=== PATIENT | male | born 1950 | race Caucasian/White ===

== ENCOUNTER → 2016-08-03 16:40 | Outpatient (CLI) | payer MEDICARE ==
[2014-06-05 07:15] VITALS: BMI 32.9
[~2016-08-03 16:40] MED LIST: ASPIRIN 81 MG E81 MG PO; FLOMAX0.4 MG PO; HCTZ25 MG PO; MICRO-K10 MEQ PO; PLAVIX75 MG PO; VITAMIN C1000 MG PO
[2016-08-03 18:45] LABS: CHOL - HDL RATIO 5.7 ratio (2.3-4.9)
== END | disposition home or self-care (01) ==
LOC: D.LABREF 16:40
PROVIDERS: Internal Medicine Cardiovascular Disease
DX: E78.5 Hyperlipidemia, unspecified (principal)

== ENCOUNTER 2017-10-26 06:46 | Outpatient (CLI) | payer MEDICARE ==
[~2017-10-26] VITALS: Ht 170.2 cm; Wt 86.4 kg
--- NOTE | ~2017-10-26 | HEMODYNAMI ---
PATIENT:CAROLINA FERNÁNDEZ MEDICAL RECORD: [id number] : 46 LOCATION:D.CAT ADMISSION DATE: 10/26/17 Generatedon:10/26/201710:48 Patient name: CAROLINA FERNÁNDEZ Patient #: [id number] SSN: : 1950 Date of study: 10/26/2017 Page: Of Hemodynamic Procedure Report Patient Data Patient Demographics Procedure consent was obtained First Name: CAROLINA Gender: Male Last Name: PRADEEP : 1950 [facility] Initial: JOSELYN Age: 66 year(s) Patient #: [id number] Race: Unknown Additional ID: [id number] Contact details Address: [address] [place] [address] [facility] [place] [facility] Zip code: [address] Past Medical History Allergies: No known allergies Admission Admission Data Admission Date: 10/26/2017 Admission Time: 6:46 Procedure Procedure Types Cath Procedure Diagnostic Procedure C LH w/Coronaries Sedation Charges Moderate Sedation up to 15 minutes Procedure Description Procedure Date Procedure Date: 10/26/2017 Procedure Start Time: 10:32 Procedure End Time: 10:43 Procedure Staff Name Function Genet Velasco RT Monitor Frances Johnson RN Nurse Toi Harris MD Performing Physician Maria Ines Zhong RT Scrub Procedure Data Cath Procedure Fluoroscopy Diagnostic fluoroscopy Total fluoroscopy Time: 2.2 time: 2.2 min min Diagnostic fluoroscopy Total fluoroscopy dose: 478 dose: 478 mGy mGy Contrast Material Contrast Material Type Amount (ml) Isovue 300 41 Entry Location Entry Primary Successful Side Size Upsize Upsize Entry Closure Hameed ccessful Closure Location (Fr) 1 (Fr) 2 (Fr) Remarks Device Remarks Radial Right 6 Fr Mechanical artery Short Compression Estimated blood loss: 5 ml Diagnostic catheters Device Type Used For End Catheter Placement DIAGNOSTIC [place] 110cm 5 Multi-vessel Fr catheter ([id number]) Angiography Procedure Complications No complications Procedure Medications Medication Administration Route Dosage Oxygen NC 2 l/min Lidocaine 2% added to field 20 Heparin Flush Bag added to field 2 bags (1000units/500ml NS) 0.9% NaCl I.V. 100 ml/hr Versed I.V. 2 mg Fentanyl I.V. 100 mcg Radial Cocktail I.A. 1 syringe (Verapomil 2mg/Nitro 400mcg/Heparin 1500units) Versed I.V. 1 mg Fentanyl I.V. 50 mcg Versed I.V. 1 mg Fentanyl I.V. 50 mcg Brilinta P.O. 90 mg Hemodynamics Rest Heart Rate: 66 (bpm) Pressure Samples Time Site Value (mmHg) Purpose Heart Use Rate(bpm) 10:35 LV 115/19,31 Snapshot 82 10:35 LV 100/15,24 Pullback 75 10:35 AO 95/52(70) Pullback 75 Gradients Valve Time Site 1 Site 2 Mean SEP/DFP Peak To Heart Use (mmHg) (sec/min) Peak Rate (mmHg) (bpm) Aortic 10:35 LV AO 6 9 5 75 100/15,24 95/52(70) Calculations Valve P-P Mean Valve Index Valve Source Name Gradient Area Flow (cm2) Aortic 5 6 5 6 Snapshots Pre Cath Intra NCS Post Cath Vital Signs Time Heart Resp SPO2 etCO2 NIBP Rhythm Pain Sedation Rate (ipm) (%) (mmHg) (mmHg) Status Level (bpm) 10:25:49 61 18 98 0 108/70(83) NSR 0 (11) 10(A) , No pain 10:29:57 65 14 93 0 112/65(92) NSR 0 (11) 10(A) , No pain 10:34:09 64 19 97 37.4 103/58(77) NSR 0 (11) 9(A) , No pain 10:38:19 73 18 95 39 86/52(64) NSR 0 (11) 9(A) , No pain 10:42:21 70 18 96 39.6 83/55(70) NSR 0 (11) 10(A) , No pain Medications Time Medication Route Dose Verified Delivered Reason Notes Effectiveness by by 10:27:39 Brilinta P.O. 90 mg Toi Buffie for Steven Johnson RN antiplatelet therapy 10:28:12 Oxygen NC 2 l/min Toi Buffie used for Steven Johnson RN procedure 10:28:18 Lidocaine 2% added 20ml Toi Toi for local to vial Steven Harris MD anesthetic field 10:28:25 Heparin Flush added 2 bags Toi Toi used for Bag to Steven Harris MD procedure (1000units/500ml field NS) 10:28:33 0.9% NaCl I.V. 100 Toi Buffie Per ml/hr Steven Johnson RN physician 10:28:43 Versed I.V. 2 mg Toi Buffie for sedation Steven Johnson RN 10:28:51 Fentanyl I.V. 100 mcg Toi Buffie used for Steven Johnson RN procedure 10:33:58 Radial Cocktail I.A. 1 Toi Toi for (Verapomil syringe Steven Harris MD vasodilation 2mg/Nitro 400mcg/Hepari 10:34:04 Versed I.V. 1 mg Toi Toi for sedation Steven Harris MD 10:34:08 Fentanyl I.V. 50 mcg Toi Toi used for Steven Harris MD procedure 10:38:24 Versed I.V. 1 mg Toi Buffie for sedation Steven Johnson RN 10:38:28 Fentanyl I.V. 50 mcg Toi Buffie used for Steven Johnson RN procedure Procedure Log Time Note 10:11:05 Diagnostic Cath Status : Elective 10:11:20 Time tracking: Regular hours (M-F 7:00 - 5:00) 10:11:20 Frances Johnson RN sent for patient. Start room use. 10:11:25 Plan of Care:Hemodynamics will remain stable., Cardiac rhythm will remain stable., Comfort level will be maintained., Respiratory function will remain adequate., Patient/ family verbilizes understanding of procedure., Procedure tolerated without complication., Recovers from procedure without complications.. 10:13:29 Patient received from Pre/Post Procedure Room to CCL 2 Alert and oriented. Tansferred to table in Supine position. 10:13:31 Correct patient and procedure confirmed by team. 10:13:31 Warm blankets applied, and kiran hugger turned on for patient comfort. 10:13:32 Signed procedure consent form obtained from patient. 10:13:43 H&P Date Dictated: 10/03/2017 Within 30 days and on chart., H&P Addendum completed by physician on day of procedure. (MUST COMPLETE FOR ALL OUTPATIENTS). 10:24:47 Vital chart was started 10:24:47 ECG and BP/O2 sat monitors applied to patient. 10:24:48 Baseline sample Acquired. 10:24:52 Rhythm: sinus rhythm 10:24:53 Full Disclosure recording started 10::56 Pre-op teaching completed and patient verbalized understanding. 10:24:56 Pre-procedure instructions explained to patient. 10:24:58 Family in waiting room. 10:24:59 Patient NPO since Midnight. 10:25:01 Is the patient allergic to Iodine/contrast media? No. 10:25:05 Was the patient premedicated? No 10:25:07 Is patient on blood thinner?Yes 10:25:10 ACC The patient was administered the following blood thiners within the last 24 hours: ACCBrilinta 10:25:12 Patient diabetic? No. 10:25:14 Previous problem with sedation/anesthesia? No ? 10:25:16 Snore? Yes 10:25:17 Sleep apnea? No 10:25:18 Deviated septum? No 10:25:20 Opens mouth fully? Yes 10:25:22 Sticks out tongue? Yes 10:25:25 Airway obstruction? No ? 10:25:28 Dentures? No ? 10:25:32 Pre procedure: right dorsailis pedis pulse 2+ Normal; easily identifiable; not easily obliterated 10:25:35 Pre procedure: left dorsailis pedis pulse 2+ Normal; easily identifiable; not easily obliterated 10:25:37 Patient pain scale 0/10 ?. 10:25:44 IV patent on arrival in left forearm with 0.9% NaCl at KVO. 10:25:48 Lab results completed and on chart. 10:25:55 Alarms reviewed by R. N. 10:25:55 Right Radial & Right Groin area was prepped with chlora-prep and draped in sterile fashion 10:25:56 Sharps counted by scrub and verified by R.N. 10::57 --------ALL STOP TIME OUT------ 10:25:57 Physician arrived 10:25:58 Final Timeout: patient, procedure, and site verified with staff and physician. All members of the team are in agreement. 10:25:59 Right Radial & Right Groin site verified by team. 10:26:02 Physical assessment completed. ASA score P 2 - A patient with mild systemic disease as per Toi Harris MD. 10:26:05 Sedation plan: IV Moderate Sedation Medication:Versed, Fentanyl 10:27:39 Brilinta 90 mg P.O. was administered by Farnces Johnson RN; for antiplatelet therapy; 10:28:12 Oxygen 2 l/min NC was administered by Frances Johnson RN; used for procedure; 10:28:18 Lidocaine 2% 20ml vial added to field was administered by Toi Harris MD; for local anesthetic; 10:28:25 Heparin Flush Bag (1000units/500ml NS) 2 bags added to field was administered by Toi Harris MD; used for procedure; 10:28:33 0.9% NaCl 100 ml/hr I.V. was administered by Frances Johnson RN; Per physician; 10:28:43 Versed 2 mg I.V. was administered by Frances Johnson RN; for sedation; 10:28:51 Fentanyl 100 mcg I.V. was administered by Frances Johnson RN; used for procedure; 10:30:28 Use device set Radial Dx or PCI 10:30:29 ACIST Syringe (50348) opened to sterile field. 10:30:30 Bag Decanter (2002) opened to sterile field. 10:30:30 Medline Cath Pack ([id number]) opened to sterile field. 10:30:31 ACIST Hand Control (33432) opened to sterile field. 10:30:31 DIAGNOSTIC WIRE .035 260cm J wire (755400) opened to sterile field. 10:30:32 Tegaderm 4 x 4 (1626W) opened to sterile field. 10:30:32 ACIST Manifold (14217) opened to sterile field. 10:30:33 MBrace Wrist Support ([id number]) opened to sterile field. 10:30:34 SHEATH 6Fr Prelude Radial ([id number]) opened to sterile field. 10:30:43 Procedure started. 10:32:17 Local anesthetic to right radial artery with Lidocaine 2% by Toi Harris MD.INITIAL ACCESS ONLY 10:32:37 A 6 Fr Short sheath was inserted into the Right Radial artery 10:33:58 Radial Cocktail (Verapomil 2mg/Nitro 400mcg/Heparin 1500units) 1 syringe I.A. was administered by Toi Harris MD; for vasodilation; 10:34:04 Versed 1 mg I.V. was administered by Toi Harris MD; for sedation; 10:34:08 Fentanyl 50 mcg I.V. was administered by Toi Harris MD; used for procedure; 10:34:23 A DIAGNOSTIC [place] 110cm 5 Fr catheter ([id number]) was advanced over the wire and used for Multi-vessel Angiography. 10:35:06 LV hemodynamics recorded. 10:35:07 LV gram done using KELLER 10:35:10 Injector settings: Ml/sec: 5, Volume: 15, 10:35:26 EF : 60 % 10:37:32 LCA angiography performed. 10:37:35 Injector settings: Ml/sec: 3, Volume: 6, 10:38:24 Versed 1 mg I.V. was administered by Frances Johnson RN; for sedation; 10:38:26 RCA angiography performed. 10:38:28 Fentanyl 50 mcg I.V. was administered by Frances Johnson RN; used for procedure; :38:28 Injector settings: Ml/sec: 3, Volume: 6, 10:39:45 Catheter removed. 10:41:30 TR BAND Standard ([id number]) opened to sterile field. 10:41:41 Sheath removed intact; hemostasis achieved with Mechanical Compression to the Right Radial artery. 10:41:42 Procedure ended.(Physican Out) 10:42:01 Fluoroscopy time 02.20 minutes. 10:42:05 Fluoroscopy dose: 478 mGy 10:42:05 Flurop Dose total: 478 10:42:08 Contrast amount:Isovue 300 41ml. 10:42:10 Sharps counted by scrub and verified by R.N. 10:42:13 TR band inflated with 11cc of air. 10:42:14 Insertion/operative site no bleeding no hematoma. 10:42:18 Post right radial artery:stable 10:42:19 Post Procedure Pulses reassessed and unchanged 10:42:22 Post procedure rhythm: unchanged. 10:42:25 Estimated blood loss: 5 ml 10:42:26 Post procedure instruction explained to patient.Patient verbalizes understanding. 10:42:27 Patient needs reinforcement of post procedure teaching. 10:42:44 Procedure type changed to Cath procedure, Diagnostic procedure, LHC, LHC w/Coronaries, Sedation Charges, Moderate Sedation up to 15 minutes 10:42:52 Procedure and supply charges have been captured, reviewed, submitted and are correct. 10:42:59 Procedure Complication : No complications 10:43:01 Vital chart was stopped 10:43:02 See physician's report for complete and final results. 10:43:04 Report given to Pre/Post Procedure Room. 10:43:07 Patient transfered to Pre/Post Procedure Room with Stretcher. 10:43:16 Full Disclosure recording stopped 10:43:16 Procedure ended. 10:43:27 End room use (Document Last) Device Usage Item Name Manufacture Quantity Catalog Number Hospital Part Current M inimal Lot# / Charge Number Stock Stock Serial# Code ACIST Syringe Acist 1 04484 128043 216329 576033 2 0 (45891) [employer] Medline Cath Cardinal 1 [id number] 003973 39050 659815 5 [employer] ([id number]) Bag Decanter Microtek 1 2001S 522458 37353 777418 5 (2001S) Medical Inc. DIAGNOSTIC WIRE St [place]hav[place] 1 [id number] 045123 784013 220573 3 0 .035 260cm J wire (613588) ACIST Hand Acist 1 24245 734213 946339 026470 5 Control (04163) [employer] Inc ACIST Manifold Acist 1 73306 540039 248867 179578 5 (87243) [employer] Inc Tegaderm 4 x 4 3M 1 1626W 510594 489976 872431 5 (1626W) MBrace Wrist Advanced 1 140-0250-00 133960 07944 403854 5 Support Vascular ([id number]) Dynamics SHEATH 6Fr Merit 1 [id number] 173562 618153 353902 5 Prelude Radial Medical ([id number]) DIAGNOSTIC Terumo 1 40-5143 612924 789502 198295 5 [place] 110cm 5 Fr catheter (318617) TR BAND Terumo 1 [id number] 373816 105896 925142 4 0 Standard ([id number]) Signature Audit Puposky Stage Time Signature Unsigned Intra-Procedure 10/26/2017 Genet Velasco 10:48:05 AM RT(R) Signatures Monitor : Genet Velasco RT Signature : Date : Time : [address] [place] [address]
[2017-10-26] MEDS ORDERED: BRILINTA90 MG PO (07:17)
[2017-10-26] MEDS ORDERED: CRESTOR40 MG PO (07:18)
[2017-10-26] MEDS ORDERED: COREG 3.1253.125 MG PO (07:18)
[2017-10-26] MEDS ORDERED: LISINOPRIL2.5 MG PO (07:19)
[2017-10-26 07:29] VITALS: BP 115/69; Ht 170.2 cm; Wt 86.4 kg
[2017-10-26 07:59] LABS: BASOPHILS 0.5 % (0-2); EOSINOPHILS 3.2 % (0-7); HEMATOCRIT 42.5 % (42.0-54.0); HEMOGLOBIN 14.9 g/dL (13.5-17.5); IMMATURE GRANULOCYTES 0.2 % (0-5); LYMPHOCYTES 23.9 % (15-50); MCH 33.1 pg (26.0-34.0); MCHC 35.1 g/dL (31.0-37.0); MCV 94.4 fL (80.0-100.0); MEAN PLATELET VOLUME 9.9 fL (7.4-10.4); MONOCYTES 9.4 % (2-11); NEUTROPHILS 62.8 % (40-80); PLATELET COUNT 225 10x3/uL (130-400); RDW 13.5 % (11.5-14.5); WBC 8.4 10x3/uL (4.8-10.8)
[2017-10-26 08:06] LABS: CALC OSMOLALITY 281 mosm/kg (275-300); CALCIUM 9.3 mg/dL (8.5-10.1); CARBON DIOXIDE 24.8 mmol/L (21.0-32.0); CHLORIDE - SERUM 104 mmol/L (98-107); CREATININE - SERUM 0.8 mg/dL (0.6-1.3); GLUCOSE 113 mg/dL (74-106); POTASSIUM - SERUM 3.6 mmol/L (3.5-5.1); SODIUM 139 mmol/L (136-145); UREA NITROGEN 21 mg/dL (7-18); eGFR NON AFRICAN AMERICAN > 90 mL/min (90-120)
== END 2017-10-26 13:35 | disposition home or self-care (01) ==
LOC: D.CATH 06:46
PROVIDERS: Internal Medicine Cardiovascular Disease
DX: I25.119 Atherosclerotic heart disease of native coronary artery with unspecified angina pectoris (principal); Z95.5 Presence of coronary angioplasty implant and graft; Z01.812 Encounter for preprocedural laboratory examination

== ENCOUNTER 2018-06-03 14:10 | Emergency (ER) | payer MEDICARE ==
[~2018-06-03] VITALS: Ht 170.2 cm; Wt 94.8 kg
[~2018-06-03 14:10] MED LIST changes: +BRILINTA90 MG PO; +COREG 3.1253.125 MG PO; +CRESTOR40 MG PO; +LISINOPRIL2.5 MG PO
[2018-06-03 14:16] VITALS: Ht 170.2 cm; Wt 94.8 kg
[2018-06-03 15:27] LABS: BASOPHILS 0.1 % (0-2); EOSINOPHILS 1.4 % (0-7); HEMATOCRIT 43.5 % (42.0-54.0); HEMOGLOBIN 14.8 g/dL (13.5-17.5); IMMATURE GRANULOCYTES 0.2 % (0-5); MCH 33.2 pg (26.0-34.0); MCV 97.5 fL (80.0-100.0); MEAN PLATELET VOLUME 9.3 fL (7.4-10.4); MONOCYTES 6.4 % (2-11); NEUTROPHILS 77.9 % (40-80); PLATELET COUNT 185 10x3/uL (130-400); RBC 4.46 10x6/uL (4.20-6.10); RDW 14.2 % (11.5-14.5); WBC 10.6 10x3/uL (4.8-10.8)
[2018-06-03 16:14] LABS: ALBUMIN 3.7 g/dL (3.4-5.0); ALKALINE PHOSPHATASE 55 U/L (46-116); ALT (SGPT) 22 U/L (10-68); BILIRUBIN - TOTAL 0.44 mg/dL (0.2-1.3); CALC OSMOLALITY 281 mosm/kg (275-300); CALCIUM 9.2 mg/dL (8.5-10.1); CARBON DIOXIDE 23.3 mmol/L (21.0-32.0); CHLORIDE - SERUM 104 mmol/L (98-107); CREATININE - SERUM 0.9 mg/dL (0.6-1.3); GLUCOSE 96 mg/dL (74-106); POTASSIUM - SERUM 3.5 mmol/L (3.5-5.1); PROTEIN - SERUM 7.7 g/dL (6.4-8.2); SODIUM 140 mmol/L (136-145); UREA NITROGEN 20 mg/dL (7-18); eGFR NON AFRICAN AMERICAN 89 mL/min (90-120)
[2018-06-03 18:16] VITALS: BP 131/64
== END 2018-06-03 18:21 | disposition other institution (70) ==
LOC: D.ER 14:10
PROVIDERS: Family Medicine
DX: S72.402A Unspecified fracture of lower end of left femur, initial encounter for closed fracture (principal); M97.12XA Periprosthetic fracture around internal prosthetic left knee joint, initial encounter; W17.89XA Other fall from one level to another, initial encounter; Y93.89 Activity, other specified; Y92.018 Other place in single-family (private) house as the place of occurrence of the external cause; F17.200 Nicotine dependence, unspecified, uncomplicated

== ENCOUNTER → 2018-12-03 13:32 | Outpatient (CLI) | payer MEDICARE ==
[2018-06-03 14:16] VITALS: BMI 29.8
== END | disposition home or self-care (01) ==
LOC: D.US 13:32
PROVIDERS: ATTEND Internal Medicine Cardiovascular Disease
DX: I65.23 Occlusion and stenosis of bilateral carotid arteries (principal)

== ENCOUNTER → 2018-12-06 09:08 | Outpatient (CLI) | payer MEDICARE ==
[2018-06-03 14:16] VITALS: BMI 29.8
== END | disposition home or self-care (01) ==
LOC: D.HCCARDIO 09:08
PROVIDERS: ATTEND Internal Medicine Cardiovascular Disease
DX: I25.10 Atherosclerotic heart disease of native coronary artery without angina pectoris (principal); R06.02 Shortness of breath

== ENCOUNTER 2019-01-02 10:03 | Outpatient (CLI) | payer MEDICARE ==
[~2019-01-02] VITALS: Ht 170.2 cm; Wt 86.4 kg
--- NOTE | ~2019-01-02 | HEMODYNAMI ---
PATIENT:CAROLINA FERNÁNDEZ MEDICAL RECORD: [id number] : 46 LOCATION:[facility] ADMISSION DATE: 01/02/19 Generatedon:01/02/201913:32 Patient name: CAROLINA FERNÁNDEZ Patient #: [id number] SSN: : 1950 Date of study: 01/02/2019 Page: Of Hemodynamic Procedure Report Patient Data Patient Demographics Procedure consent was obtained First Name: CAROLINA Gender: Male Last Name: PRADEEP : 1950 [facility] Initial: JOSELYN Age: 68 year(s) Patient #: [id number] Race: Unknown Additional ID: [id number] Contact details Address: [address] [place] [address] [place] [place] [facility] Zip code: [address] Past Medical History Allergies: No known allergies Admission Admission Data Admission Date: 01/02/2019 Admission Time: 10:03 Lab Results Lab Result Date: 01/02/2019 Lab Result Time: 0:00 Biochemistry Name Units Result Min Max BUN mg/dl 9 --(*---)-- 7 18 Creatinine mg/dl 0.7 --(*---)-- 0.6 1.3 eGFR ml/min 90 --(*---)-- 90 120 NONAFRICAN CBC Name Units Result Min Max Hemoglobin g/dl 14.1 --(*---)-- 13.5 17.5 Procedure Procedure Types Cath Procedure Diagnostic Procedure [facility] w/Coronaries Sedation Charges Moderate Sedation up to 15 minutes Procedure Description Procedure Date Procedure Date: 01/02/2019 Procedure Start Time: 13:20 Procedure End Time: 13:31 Procedure Staff Name Function Toi Harris MD Performing Physician Genet Velasco RT Monitor Hina Tejeda RT Scrub Frances Johnson RN Nurse Procedure Data Cath Procedure Fluoroscopy Diagnostic fluoroscopy Total fluoroscopy Time: 3.1 time: 3.1 min min Diagnostic fluoroscopy Total fluoroscopy dose: 685 dose: 685 mGy mGy Contrast Material Contrast Material Type Amount (ml) Isovue 300 73 Entry Location Entry Primary Successful Side Size Upsize Upsize Entry Closure Hameed ccessful Closure Location (Fr) 1 (Fr) 2 (Fr) Remarks Device Remarks Radial Right 6 Fr Mechanical artery Short Compression Estimated blood loss: 5 ml Diagnostic catheters Device Type Used For End Catheter Placement DIAGNOSTIC [place] 110cm 5 Multi-vessel Fr catheter ([id number]) Angiography Procedure Complications No complications Procedure Medications Medication Administration Route Dosage Oxygen etCO2 Nasal cannula 2 l/min Lidocaine 2% added to field 20 Heparin Flush Bag added to field 2 bags (1000units/500ml NS) 0.9% NaCl I.V. 100 ml/hr Radial Cocktail I.A. 1 syringe (Verapamil 2mg/Nitro 400mcg/Heparin 1500units) Versed I.V. 2 mg Fentanyl I.V. 100 mcg Versed I.V. 1 mg Fentanyl I.V. 50 mcg Versed I.V. 1 mg Fentanyl I.V. 50 mcg Versed I.V. 1 mg Hemodynamics Rest HGB: 14.1 (g/dl) Heart Rate: 62 (bpm) Pressure Samples Time Site Value (mmHg) Purpose Heart Use Rate(bpm) 13:24 LV 108/2,12 Snapshot 66 Gradients Valve Time Site Site Mean SEP/DFP Peak To Heart Use 1 2 (mmHg) (sec/min) Peak Rate (mmHg) (bpm) Aortic 13:25 LV AO 72 Snapshots Pre Cath Intra NCS Post Cath Vital Signs Time Heart Resp SPO2 etCO2 NIBP Rhythm Pain Sedation Rate (ipm) (%) (mmHg) (mmHg) Status Level (bpm) 12:57:10 55 12 95 31.6 Measuring NSR 0 (11) 10(A) , No pain 13:00:12 55 12 99 32.4 123/72(94) NSR 0 (11) 10(A) , No pain 13:04:20 58 14 99 0 123/77(92) NSR 0 (11) 10(A) , No pain 13:08:28 60 14 98 0 125/74(88) NSR 0 (11) 10(A) , No pain 13:12:36 63 10 95 39.8 128/75(94) NSR 0 (11) 10(A) , No pain 13:16:48 65 13 95 38.3 117/68(80) NSR 0 (11) 9(A) , No pain 13:20:55 61 11 94 39.1 118/67(99) NSR 0 (11) 9(A) , No pain 13:25:06 59 13 95 0 99/62(77) NSR 0 (11) 9(A) , No pain 13:29:11 66 14 95 39.9 100/55(75) NSR 0 (11) 10(A) , No pain Medications Time Medication Route Dose Verified Delivered Reason Notes Effectiveness by by 13:00:57 Oxygen etCO2 2 l/min Toi Buffie used for Nasal Steven Johnson RN procedure cannula 13:01:04 Lidocaine 2% added 20ml Toi Toi for local to vial Steven Harris MD anesthetic field 13:01:11 Heparin Flush added 2 bags Toi Toi used for Bag to Steven Harris MD procedure (1000units/500ml field NS) 13:01:19 0.9% NaCl I.V. 100 Toi Buffie Per ml/hr Steven Johnson RN physician 13:03:38 Versed I.V. 2 mg Toi Buffie for sedation Steven Johnson RN 13:03:43 Fentanyl I.V. 100 mcg Toi Buffie for sedation Steven Johnson RN 13:08:07 Versed I.V. 1 mg Toi Buffie for sedation Steven Johnson RN 13:08:11 Fentanyl I.V. 50 mcg Toi Buffie for sedation Steven Johnson RN 13:14:38 Versed I.V. 1 mg Toi Buffie for sedation Steven Johnson RN 13:14:42 Fentanyl I.V. 50 mcg Toi Buffie for sedation Steven Johnson RN 13:23:04 Radial Cocktail I.A. 1 Toi Toi for (Verapamil syringe Steven Harris MD vasodilation 2mg/Nitro 400mcg/Heparin 1500units) 13:24:01 Versed I.V. 1 mg Toi Buffie for sedation Steven Johnson RN Procedure Log Time Note 12:39:03 Diagnostic Cath Status : Elective 12:40:59 Lab Result : eGFR NONAFRICAN 90 ml/min 12:40:59 Lab Result : Hemoglobin 14.1 g/dl 12:40:59 Lab Result : BUN 9 mg/dl 12:40:59 Lab Result : Creatinine 0.7 mg/dl 12:41:11 Frances Johnson RN sent for patient. Start room use. 12:41:12 Time tracking: Regular hours (M-F 7:00 - 5:00) 12:41:17 Plan of Care:Hemodynamics will remain stable., Cardiac rhythm will remain stable., Comfort level will be maintained., Respiratory function will remain adequate., Patient/ family verbilizes understanding of procedure., Procedure tolerated without complication., Recovers from procedure without complications.. 12:55:20 Vital chart was started 12:58:30 Patient received from Pre/Post Procedure Room to CCL 2 Alert and oriented. Tansferred to table in Supine position. 12:58:32 Warm blankets applied, and kiran hugger turned on for patient comfort. 12:58:33 Signed procedure consent form obtained from patient. 12:58:34 Correct patient and procedure confirmed by team. 12:58:34 ECG and BP/O2 sat monitors applied to patient. 12:58:37 Baseline sample Acquired. 12:58:44 Rhythm: sinus rhythm 12:58:45 Full Disclosure recording started 12:58:49 H&P Date Dictated: 01/02/2019 Within 30 days and on chart., H&P Addendum completed by physician on day of procedure. (MUST COMPLETE FOR ALL OUTPATIENTS). 12:58:50 Pre-procedure instructions explained to patient. 12:58:51 Pre-op teaching completed and patient verbalized understanding. 12:58:52 Family in waiting room. 12:58:53 Patient NPO since Midnight. 12:58:55 Is the patient allergic to Iodine/contrast media? No. 12:58:56 Was the patient premedicated? No 12:59:08 Is patient on blood thinner?Yes 12:59:11 ACC The patient was administered the following blood thiners within the last 24 hours: ACCAspirin 12:59:13 Patient diabetic? No. 12:59:16 Previous problem with sedation/anesthesia? No ? 12:59:17 Snore? Yes 12:59:18 Sleep apnea? No 12:59:19 Deviated septum? No 12:59:20 Opens mouth fully? Yes 12:59:20 Sticks out tongue? Yes 12:59:22 Airway obstruction? No ? 12:59:24 Dentures? No ? 12:59:29 Pre procedure: right dorsailis pedis pulse 2+ Normal; easily identifiable; not easily obliterated 12:59:32 Pre procedure: left dorsailis pedis pulse 2+ Normal; easily identifiable; not easily obliterated 12:59:35 Patient pain scale 0/10 ?. 12:59:44 IV patent on arrival in right antecubital with 0.9% NaCl at [facility]. 12:59:47 Lab results completed and on chart. 13:00:03 Right Radial & Right Groin area was prepped with chlora-prep and draped in sterile fashion 13:00:04 Alarms reviewed by R. N. 13:00:04 Sharps counted by scrub and verified by R.N. 13:00:57 Oxygen 2 l/min etCO2 Nasal cannula was administered by Frances Johnson RN; used for procedure; 13:01:04 Lidocaine 2% 20ml vial added to field was administered by Toi Harris MD; for local anesthetic; 13:01:11 Heparin Flush Bag (1000units/500ml NS) 2 bags added to field was administered by Toi Harris MD; used for procedure; 13:01:17 Physician arrived 13:01:18 --------ALL STOP TIME OUT------ 13:01:18 Final Timeout: patient, procedure, and site verified with staff and physician. All members of the team are in agreement. 13:01:19 0.9% NaCl 100 ml/hr I.V. was administered by Frances Johnson RN; Per physician; 13:01:20 Right Radial & Right Groin site verified by team. 13:01:23 Fire Safety Assessment: A--An alcohol-based skin anteseptic being used preoperatively., C--Open oxygen or nitrous oxide is being used., D--An ESU, laser, or fiber-optic light is being used. 13:01:26 Physical assessment completed. ASA score P 2 - A patient with mild systemic disease as per Toi Harris MD. 13:01:30 1) 90+ Normal kidney functon but urine findings or structural abnormalities or genetic trait point to kidney disease. 13:01:33 Maximum allowable contrast dose (3.7 X eGFR X 0.75)250 ml. 13:01:36 Sedation plan: IV Moderate Sedation Medication:Versed, Fentanyl 13:01:40 Use device set Radial Dx or PCI 13:01:42 ACIST Syringe (82918) opened to sterile field. 13:01:42 Medline Cath Pack ([id number]) opened to sterile field. 13:01:43 Bag Decanter () opened to sterile field. 13:01:43 ACIST Hand Control (95775) opened to sterile field. 13:01:43 ACIST Manifold (64494) opened to sterile field. 13:01:44 Tegaderm 4 x 4 (1626W) opened to sterile field. 13:01:45 MBrace Wrist Support ([id number]) opened to sterile field. 13:01:45 NEEDLE Cook 21G 4cm Radial (C84866) opened to sterile field. 13:01:47 SHEATH 6FR RAIN (3972381) opened to sterile field. 13:01:48 EMERALD Guide Wire (716-621) opened to sterile field. 13:03:38 Versed 2 mg I.V. was administered by Frances Jhonson RN; for sedation; 13:03:43 Fentanyl 100 mcg I.V. was administered by Frances Johnson RN; for sedation; 13:08:07 Versed 1 mg I.V. was administered by Frances Johnson RN; for sedation; 13:08:11 Fentanyl 50 mcg I.V. was administered by Frances Johnson RN; for sedation; 13:11:31 Zero performed for pressure channel P1 13:14:38 Versed 1 mg I.V. was administered by Frances Johnson RN; for sedation; 13:14:42 Fentanyl 50 mcg I.V. was administered by Frances Johnson RN; for sedation; 13:18:57 Procedure started. 13:20:36 Local anesthetic to right radial artery with Lidocaine 2% by Toi Harris MD.INITIAL ACCESS ONLY 13:21:03 A 6 Fr Short sheath was inserted into the Right Radial artery 13:22:28 A DIAGNOSTIC [place] 110cm 5 Fr catheter (040125) was advanced over the wire and used for Multi-vessel Angiography. 13:23:04 Radial Cocktail (Verapamil 2mg/Nitro 400mcg/Heparin 1500units) 1 syringe I.A. was administered by Toi Harris MD; for vasodilation; 13:24:01 Versed 1 mg I.V. was administered by Frances Johnson RN; for sedation; 13:24:05 LV hemodynamics recorded. 13:24:06 LV gram done using KELLER 13:24:09 Injector settings: Ml/sec: 5, Volume: 15, 13:24:53 EF : 60 % 13:26:02 LCA angiography performed. 13::06 Injector settings: Ml/sec: 3, Volume: 6, 13:27:39 RCA angiography performed. 13:27:41 ACCDominant side:Right 13:29:30 Injector settings: Ml/sec: 3, Volume: 6, 13:29:32 Catheter removed. 13:29:40 Sheath removed intact; hemostasis achieved with Mechanical Compression to the Right Radial artery. 13:29:43 Procedure ended.(Physican Out) 13:30:06 ZEPHYR REGULAR TR BAND (673318) opened to sterile field. 13:30:19 Fluoroscopy time 03.10 minutes. 13:30:23 Flurop Dose total: 685 13:30:23 Fluoroscopy dose: 685 mGy 13:30:30 Dose Area Product 55399 mGy/cm. 13:30:34 Contrast amount:Isovue 300 73ml. 13:30:36 Sharps counted by scrub and verified by R.N. 13:30:39 [place] band inflated with 10cc of air. 13:30:40 Insertion/operative site no bleeding no hematoma. 13:30:44 Post right radial artery:stable 13:30:46 Post Procedure Pulses reassessed and unchanged 13:30:48 Post procedure rhythm: unchanged. 13:30:51 Estimated blood loss: 5 ml 13:30:52 Post procedure instruction explained to patient.Patient verbalizes understanding. 13:30:53 Patient needs reinforcement of post procedure teaching. 13:31:00 Procedure type changed to Cath procedure, Diagnostic procedure, LHC, LHC w/Coronaries, Sedation Charges, Moderate Sedation up to 15 minutes 13:31:02 Procedure and supply charges have been captured, reviewed, submitted and are correct. 13:31:07 Procedure Complication : No complications 13:31:10 Vital chart was stopped 13:31:11 See physician's report for complete and final results. 13:31:14 Report given to Pre/Post Procedure Room. 13:31:17 Patient transfered to Pre/Post Procedure Room with Bed. 13:31:21 Procedure ended. 13:31:21 Full Disclosure recording stopped 13:31:25 End room use (Document Last) Device Usage Item Name Manufacture Quantity Catalog Hospital Part Current Minima l Lot# / Number Charge Number Stock Stock Serial# Code ACIST Acist 1 50439 [id number] 173660 604258 20 Syringe Medical (12459) Systems Inc Medline Medline 1 [id number] 252948 70643 645583 5 Cath Pack ([id number]) Bag Microtek 1 2001S 931458 45137 169902 5 Decanter Medical Inc. () ACIST Hand Acist 1 62226 635814 885125 986789 5 Control Medical (55474) Systems Inc ACIST Acist 1 64727 668354 074090 391313 5 Manifold Medical (52028) Systems Inc Tegaderm 4 3M 1 1626W 634859 288911 455648 5 x 4 (1626W) MBrace Advanced 1 140-0250-00 915675 00850 834718 5 Wrist Vascular Support Dynamics ([id number]) NEEDLE Cook Cook Medical 1 A29119 028192 296733 150065 5 21G 4cm Radial (Q30641) SHEATH 6FR Cardinal 1 1559525 610408 8017988 604922 5 RAIN Health (1734639) EMERALD Cardinal 1 574-077 116125 909083 253090 5 Guide Wire Health (028-130) DIAGNOSTIC Terumo 1 71-0019 873236 932208 153441 5 [place] 110cm 5 Fr catheter (956536) ZEPHYR Cardinal 1 158937 878542 2806703 233325 5 REGULAR TR Health BAND (991608) Signature Audit [place] Time Signature Unsigned Intra-Procedure 01/02/2019 Genet Velasco 1:32:22 PM RT(R) Signatures Performing Physician : Signature : Toi Harris MD Date : Time : Monitor : Genet Velasco RT Signature : Date : Time : Nurse : Frances Johnson RN Signature : Date : Time : [place] [address] [facility] [place] [address]
[2019-01-02 11:27] VITALS: BP 134/73; Ht 170.2 cm; Wt 86.4 kg
[2019-01-02 11:47] LABS: BASOPHILS 0.4 % (0-2); EOSINOPHILS 2.4 % (0-7); HEMATOCRIT 39.8 % (42.0-54.0); HEMOGLOBIN 14.1 g/dL (13.5-17.5); IMMATURE GRANULOCYTES 0.1 % (0-5); MCH 33.4 pg (26.0-34.0); MCHC 35.4 g/dL (31.0-37.0); MCV 94.3 fL (80.0-100.0); MEAN PLATELET VOLUME 9.9 fL (7.4-10.4); NEUTROPHILS 58.1 % (40-80); PLATELET COUNT 175 10x3/uL (130-400); RBC 4.22 10x6/uL (4.20-6.10); WBC 8.2 10x3/uL (4.8-10.8)
[2019-01-02 11:59] LABS: ALT (SGPT) 24 U/L (10-68); CALC OSMOLALITY 279 mosm/kg (275-300); CALCIUM 9.6 mg/dL (8.5-10.1); CARBON DIOXIDE 26.2 mmol/L (21.0-32.0); CHLORIDE - SERUM 106 mmol/L (98-107); CHOL - HDL RATIO 2.5 ratio (2.3-4.9); CHOLESTEROL, TOTAL 86 mg/dL (0-200); CREATININE - SERUM 0.7 mg/dL (0.6-1.3); GLUCOSE 97 mg/dL (74-106); HDL CHOLESTEROL 35 mg/dL (32-96); LDL CHOLESTEROL 43 mg/dL (0-100); LDL-HDL RATIO 1.2 ratio (1.5-3.5); POTASSIUM - SERUM 3.8 mmol/L (3.5-5.1); SODIUM 141 mmol/L (136-145); TRIGLYCERIDE 43 mg/dL (30-200); UREA NITROGEN 9 mg/dL (7-18); eGFR NON AFRICAN AMERICAN > 90 mL/min (90-120)
--- NOTE | 2019-01-02 13:46 | NUR ---
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 PT SLEEPING BUT VERBALLY AROUSABLE. IV PATENT INFUSING VIA ORDERS PER R ARM. HR NSR RATE 59, BP 104/58, 02 PLACED AT 2L/NC SAT 96. ZEPHOR BAND AND IMMOBILIZER TO R WRIST, DRESSING CDI NO BLEEDING OR SWELLING NOTED. ARM PINK AND WARM, CAP REFILL BRISK. CALL LIGHT IN REACH. PT HAS VOICED NO COMPLAINTS OF PAIN OR DISCOMFORT.
--- NOTE | 2019-01-02 14:16 | NUR ---
PT SITTING UP IN BED EATING LUNCH TRAY. DENIES PAIN OR DISCOMFORT. Z BAND AND IMMOBILIZER IN PLACE, DRESSING CDI NO BLEEDING OR SWELLING NOTED. VSS. FAMILY AT BEDSIDE, CALL LIGHT IN REACH. PT REQUESTING TO TALK WITH DR RAYGOZA BECAUSE HE WAS ASLEEP WHEN HE INITIALLY CAME IN. DR RAYGOZA NOTIFIED
--- NOTE | 2019-01-02 14:30 | NUR ---
AIR REMOVAL PROCESS STARTED PER PROTOCOL, 4CC AIR REMOVED FROM Z BAND, NO BLEEDING OR SWELLING NOTED. ARM PINK AND WARM, CAP REFILL BRISK. HR SINUS LORNA AT 53, BP 95/58, 02 SAT 96. CALL LIGHT IN REACH, FAMILY AT BEDSIDE. PT DENIES PAIN OR NEEDS
--- NOTE | 2019-01-02 15:00 | NUR ---
PT SITTING UP VISITING W FAMILY. DENIES PAIN OR DISCOMFORT. 3 ADD'L CC AIR REMOVED FROM Z BAND W/O BLEEDING OR SWELLING NOTED. VSS. ARM PINK AND WARM, CAP REFILL BRISK. CALL LIGHT IN REACH
--- NOTE | 2019-01-02 15:15 | NUR ---
DR RAYGOZA AT BEDSIDE SPEAKING TO PT REGARDING PLAN OF CARE AND PROCEDURE RESULTS. 1520 DISCHARGE INSTRUCTIONS REVIEWED W PT AND FAMILY, ALL UNDERSTOOD W/O QUESTIONS. MONITORS REMOVED AND PT UP TO DRESS FOR DISCHARGE. R WRIST REMAINS W/O BLEEDING OR SWELLING. IMMOBILIZER REMOVED PER PT REQUEST.
--- NOTE | 2019-01-02 15:25 | NUR ---
Z BAND AND REMAINING AIR REMOVED W/O BLEEDING OR HEMATOMA NOTED. 2X2 AND TEGADERM DRESSING APPLIED. 1530 PT DISCHARGED TO PRIVATE VEHICLE VIA WC TO SISTER WAITING. PT HAS ALL BELONGINGS AND DISCHARGE PAPERWORK
== END 2019-01-02 15:30 | disposition home or self-care (01) ==
LOC: D.CATH 10:03
PROVIDERS: ATTEND Internal Medicine Cardiovascular Disease
DX: I25.119 Atherosclerotic heart disease of native coronary artery with unspecified angina pectoris (principal); Z95.5 Presence of coronary angioplasty implant and graft; Z01.812 Encounter for preprocedural laboratory examination

== ENCOUNTER → 2019-08-12 07:50 | Outpatient (CLI) | payer MEDICARE ==
[2019-01-02 11:27] VITALS: BMI 29.8
== END | disposition home or self-care (01) ==
LOC: D.HCCECHO 07:50
PROVIDERS: ATTEND Internal Medicine Cardiovascular Disease
DX: I25.10 Atherosclerotic heart disease of native coronary artery without angina pectoris (principal)